=== PATIENT | female | born 1955 | race Caucasian/White ===

== ENCOUNTER → 2017-03-11 | Outpatient (CLI) | payer BC | LOC: RAD 11:09 | DX: Z12.31 Encounter for screening mammogram for malignant neoplasm of breast (principal) ==

== ENCOUNTER → 2019-06-04 | Outpatient (CLI) | payer BC | LOC: RAD 11:54 | DX: Z12.31 Encounter for screening mammogram for malignant neoplasm of breast (principal) ==